=== PATIENT | male | born 1950 | race Caucasian/White ===

== ENCOUNTER 2016-05-16 00:10 | Emergency (ER) | payer OTHER ==
[~2016-05-16] VITALS: Ht 170.2 cm; Wt 75.0 kg
[~2016-05-16 00:10] MED LIST: CITA20TA PO; HYG25 PO; SIMV20TA4 PO
[2016-05-16 00:15] VITALS: BP 188/80; PULSE 58; RESP 16; O2SAT 98
--- NOTE | 2016-05-16 00:24 | ED.REPORT ---
HPI-Extremity Problem Upper Date of Service May 16, 2016 ED Provider: Dr. Mitchell Pt is a 65 year old male presenting to the ED complaining of a crush type injury to his right second finger. To his right second finger. His digit was crushed between two 400lb heavy machinery tools. His last tetanus shot was about 5 years ago. Nursing Notes Stated Complaint: RIGHT INDEX FINGER INJURY Chief Complaint: Extremity Trauma Nursing Notes Reviewed: Yes Allergies: Coded Allergies: No Known Drug Allergies (Verified Allergy, Unknown, 04/30/16) Scheduled Chlorthalidone (Chlorthalidone) 25 Mg Tablet 25 MG PO DAILY Citalopram Hydrobromide (Celexa) 20 Mg Tablet 20 MG PO DAILY Simvastatin (Simvastatin) 20 Mg Tablet 20 MG PO HS General Time Seen by MD: 00:24 Chief Complaint Finger injury right 2 Hx Obtained From: Patient Arrived By: Walk-in Onset Occurred: Just prior to arrival Symptom Duration: Since onset Caused by: Accidental, Crushing injury Context: Occurred at: Workplace Location: : Finger right 2 Quality: Painful Severity: Current: Mild Severity: Maximum: Moderate Immunizations: Tetanus w/in 5 - 10 yrs Recent Healthcare: No recent doctor visit, No recent hospitalization Similar Sx Previous: No Past Medical History Past Medical History Colon polyps Past Surgical History endoscopy Smoking History Unknown if Ever Smoker Ambulatory Status Independent Review of Systems Constitutional: Denies: Fever Musculoskeletal: Reports: Extremity pain (2nd finger right hand) Neurologic: Denies: Weakness Complete sys rev & neg: except as marked. Respiratory: Denies: Shortness of breath GI: Denies: Vomiting Physical Exam Initial Vital Signs Vital Signs (First) Date Time Temp Pulse Resp B/P Pulse Ox O2 Delivery O2 Flow Rate FiO2 05/16/16 00:15 37 58 16 188/80 98 Room Air Initial VS: Reviewed General/Constitutional: Well-developed, Well-nourished Head / Eyes: Atraumatic, Normocephalic ENT: Conjunctiva normal, No scleral icterus Neck: Non-tender, Full range of motion Respiratory: No respiratory distress Skin: Warm, Dry, No cyanosis Neurologic: Alert, Oriented, Nonfocal Psychiatric: Mood/affect normal, Behavior normal, Normal thought content Wrist / Hand: Neurologic intact, Vascular intact Trauma / Burn / Environmental: Positive: Laceration Curved type laceration on radial aspect of tip of right second finger Interpretation & Diagnostics X-Ray Interpretation Xray Interpretation: XRAY RIGHT HAND: Crushed fracture of tip of distal phalynx X-Ray Ordered: Hand right Interpretation / Wet Read by: Wet read ED physician Re-Eval/Medical Decision Med Decision/Clinical Course No exposed bone. The nail bed is intact. This is not an open fracture. There is a small tuft fracture seen on the x-ray. Nondisplaced. No foreign bodies. Wound was carefully irrigated. Lacerations were closed. Sterile dressing applied. I will placement anabolic prophylaxis and have a wound check in 48 hours. Referred orthophoric definitive fracture management. No evidence of flexor or extensor tendon injury. Re-Evaluation/Progress : Time of Eval: 00:30 Patient Status: Condition improved Re-Evaluation/Progress Note: Discussed plan for discharge. Pt understands and agrees with plan. Counseled Regarding: Diagnosis, Lab results, Need for follow-up, When/why to return to ED Discharge & Departure Impression: Primary Impression: Fracture, finger, distal phalanx Encounter type: initial encounter Finger: index finger Fracture type: closed Fracture alignment: nondisplaced Laterality: right Qualified Code: S62.660A - Nondisplaced fracture of distal phalanx of right index finger, initial encounter for closed fracture Additional Impression: Laceration of finger of right hand Encounter type: initial encounter Qualified Code: S61.219A - Laceration without foreign body of unspecified finger without damage to nail, initial encounter Disposition: Home Discharge Condition All VS Reviewed: Yes Condition: Improved Patient Instructions: Acute Wound Care (ED), Finger Fracture (ED), Laceration ( ED), Splint Care (ED) Additional Instructions: You have a crush type fracture of the tip of your finger. This needs to be followed up with next week. Come back here or go to the urgent care for a wound check in 48 hours. Follow-up with the referral orthopedic surgeon next week regarding definitive fracture management. I suspect that the fracture should heal with just supportive care. Keep the finger dressed until seen in follow-up. Take Keflex 4 times daily for 7 days to prevent infection. Stitches out in roughly 7-10 days. Tylenol or Motrin as directed for pain. Referrals: Alberto Fletcher MD (PCP) Xavier Leung MD Scribe Attestation Portions of this note were transcribed by Nazia Siu. I, Dr. Mitchell personally performed the history, physical exam and medical decision-making; I reviewed and confirmed the accuracy of the information in the transcribed note. Signed by : Marshall Albrecht, 05/15/2016 and 0217. copies to: Alberto Fletcher MD, Todd P DO May 16, 2016 00:24 NAZIA SIU May 16, 2016 00:33
[2016-05-16] MEDS ORDERED: Lidocaine 1% 50 mL Inj NERVEBLOCK ONE (00:35)
[2016-05-16] MEDS ORDERED: TdaP Vaccine 0.5 mL Inj IM ONE (00:35)
[2016-05-16 02:12] VITALS: BP 150/76; PULSE 67; RESP 18; O2SAT 95
--- NOTE | 2016-05-16 07:57 | DRSVH ---
PROCEDURE: X-RAY FINGERS, TWO VIEWS INDICATIONS: crushed finger TECHNIQUE: AP hand, 2 views of the right finger(s) acquired. COMPARISON: None. FINDINGS: Bones: No fractures or dislocations. No suspicious bony lesions. Fracture of the distal tuft of th e index finger. Chronic diffuse interphalangeal spurring, and ununited osteophytes. Soft tissues: No suspicious soft tissue calcifications. IMPRESSION: Fracture of the distal tuft of the index finger. Dictated by: Glenroy Corcoran M.D. on 05/16/2016 at 7:55 Approved by: Glenroy Corcoran M.D. on 05/16/2016 at 7:55
== END 2016-05-16 02:20 | disposition home or self-care (01) ==
LOC: SED 00:10
DX: S62.660A Nondisplaced fracture of distal phalanx of right index finger, initial encounter for closed fracture (principal); S61.210A Laceration without foreign body of right index finger without damage to nail, initial encounter; W31.9XXA Contact with unspecified machinery, initial encounter; W23.0XXA Caught, crushed, jammed, or pinched between moving objects, initial encounter; Y92.59 Other trade areas as the place of occurrence of the external cause; Y93.89 Activity, other specified; Y99.0 Civilian activity done for income or pay; Z23 Encounter for immunization

== ENCOUNTER 2016-05-17 13:34 | Emergency (ER) | payer OTHER ==
[~2016-05-17] VITALS: Ht 170.2 cm; Wt 72.7 kg
[2016-05-17 14:14] VITALS: BP 146/84; PULSE 60; RESP 16; O2SAT 97
--- NOTE | 2016-05-17 15:36 | ED.REPORT ---
HPI-Recheck W/B/S Date of Service May 17, 2016 ED Provider: Xavier Mccann History of Present Illness: 65yo male here for wound recheck. Seen in this ED yesterday for R index finger tip lac/tuft fracture. Nursing Notes Stated Complaint: CHECK UP RT FINGER Chief Complaint: Wound Recheck/Suture Removal Allergies: Coded Allergies: No Known Drug Allergies (Verified Allergy, Unknown, 04/30/16) Scheduled Chlorthalidone (Chlorthalidone) 25 Mg Tablet 25 MG PO DAILY Citalopram Hydrobromide (Celexa) 20 Mg Tablet 20 MG PO DAILY Simvastatin (Simvastatin) 20 Mg Tablet 20 MG PO HS General Time Seen by Provider: 15:30 Chief Complaint Wound check Hx Obtained From: Patient Arrived By: Walk-in Onset Occurred: Yesterday Progression Since Onset: Gradually improving Quality: Dull Radiation: Does not radiate Severity: Current: No pain currently Severity: Maximum: Mild Pertinent Negative: Pt denies other symptoms Recent Healthcare: Recent doctor visit Past Medical History Past Medical History Colon polyps Past Surgical History endoscopy Smoking History Unknown if Ever Smoker Ambulatory Status Independent Review of Systems Constitutional: Denies: Chills, Fever Respiratory: Denies: Shortness of breath Cardiovascular: Denies: Chest pain GI: Denies: Abdominal pain Musculoskeletal: Reports: Extremity pain Physical Exam Initial Vital Signs Vital Signs (First) Date Time Temp Pulse Resp B/P Pulse Ox O2 Delivery O2 Flow Rate FiO2 05/17/16 14:14 36.7 60 16 146/84 97 Initial VS: Reviewed Skin: Warm, Dry Rash / Lesion Notes: R index finger lac nicely repaired. Cleased and applied bacitracin dressingt and splint. Respiratory / Chest: Breath sounds NL, Breath sounds = bilat, No respiratory distress Cardiovascular: Heart rate NL, Regular rhythm, Heart sounds NL Abdomen: Soft Re-Eval/Medical Decision Med Decision/Clinical Course wound check, healing well. Pt. has planned follow up with Ortho tomorrow. Discussed s/s for which to return to ED. He acknowledged understanding of plan. Discharge & Departure Impression: Primary Impression: Laceration of finger of right hand Encounter type: subsequent encounter Qualified Code: S61.219D - Laceration without foreign body of unspecified finger without damage to nail, subsequent encounter Additional Impression: Fracture, finger, distal phalanx Encounter type: subsequent encounter Finger: index finger Fracture type: closed Fracture alignment: nondisplaced Laterality: right Fracture healing : with routine healing Qualified Code: S62.660D - Nondisplaced fracture of distal phalanx of right index finger, subsequent encounter for fracture with routine healing Disposition: Home Patient Instructions: Acute Wound Care (ED) Additional Instructions: keep clean and dry, open to air at night. Follow up with Ortho as planned. Return to ER if anything worsens. Referrals: Ortho 1 Day as previously referred EDSupervising Provider for APC: Andi Small MD, Christopher R PAC May 17, 2016 15:36
== END 2016-05-17 15:49 | disposition home or self-care (01) ==
LOC: SED 13:34
DX: Z48.00 Encounter for change or removal of nonsurgical wound dressing (principal)